=== PATIENT | male | born 1995 | race African-American/Black ===

== ENCOUNTER 2016-12-25 17:23 | Emergency (ER) | payer OTHER ==
[~2016-12-25] VITALS: Ht 188 cm; Wt 82.6 kg
[2016-12-25 17:50] VITALS: BP 120/78
[2016-12-25] MEDS ORDERED: NKM (17:54)
--- NOTE | 2016-12-25 18:14 | Emergency Room Report ---
History of Present Illness General Chief Complaint: Animal Bite Source: Patient Present Illness HPI The patient is a 21-year-old male presenting with dog bite to the left hand which occurred at work today. Pain is described as a 7/10 dull ache to the hand and does not radiate. The patient did initially notice blood which has stopped. The patient denies numbness or tingling of the hand. Patient denies prior injury of the hand.The patient states that the dog was up-to-date with immunizations. Patient last had a tetanus shot 2 years prior. The patient denies any other symptoms including nausea, vomiting, fever, chills Allergies: Coded Allergies: No Known Allergies (Unverified , 12/25/16) Patient History Past Medical History: see triage record Pertinent Family History: none Reviewed Nursing Documentation: PMH: Agreed, PSxH: Agreed Nursing Documentation-PMH Past Medical History: No Stated History Review of Systems All Other Systems: negative except mentioned in HPI Physical Exam Vital Signs Date Time Temp Pulse Resp B/P Pulse Ox O2 Delivery O2 Flow Rate FiO2 12/25/16 17:50 98.2 65 14 120/78 99 Room Air Sp02 EP Interpretation: reviewed, normal General Appearance: no apparent distress, alert, GCS 15, non-toxic Head: normocephalic, atraumatic Eyes: bilateral eye PERRL, bilateral eye normal inspection ENT: hearing grossly normal, normal pharynx, no angioedema, normal voice Musculoskeletal: back normal, gait/station normal, normal range of motion, tender - Tender over proximal hand. Distal to wrist Neurologic: alert, oriented x3, responsive, motor strength/tone normal, sensory intact, speech normal Psychiatric: judgement/insight normal, memory normal, mood/affect normal, no suicidal/homicidal ideation Reflexes: 3+ bicep (R), 3+ bicep (L), 3+ tricep (R), 3+ tricep (L), 3+ knee (R) , 3+ knee (L) Skin: normal color, no rash, warm/dry, well hydrated, laceration - two puncture wounds of the L hand palmar surface. No active bleeding. One < 1cm abrasion to mod dorsum of hand. Lymphatic: no adenopathy Medical Decision Making PA Attestation Dr. Carranza is my supervising physician. Patient management was discussed with my supervising physician Diagnostic Impression: Primary Impression: Dog bite ER Course The patient is a 21-year-old male presenting with dog bite to the left hand which occurred at work today. Ddx considered include but not limited to bite wound, tendon injury, laceration , contusion PE: vitals WNL. NAD two puncture wounds of the L hand palmar surface. No active bleeding. One < 1cm abrasion to mid dorsum of hand. Full active range of motion of the hand. Sensation intact to light touch.no edema The wounds were copiously irrigated with pressured normal saline with Betadine. Bacitracin is applied as well as sterile dressing. The patient will be discharged home with a prescription for Augmentin. ER precautions are given. Last Vital Signs Date Time Temp Pulse Resp B/P Pulse Ox O2 Delivery O2 Flow Rate FiO2 12/25/16 17:50 98.2 65 14 120/78 99 Room Air Status: improved Disposition: HOME, SELF-CARE Condition: Improved Scripts Amoxicillin/Potassium Clav 500-125 Tablet* (AUGMENTIN 500-125 TABLET*) 1 Each Tablet 1 TAB ORAL THREE TIMES A DAY, #15 TAB Prov: ALE KHAN P.Marina 12/25/16 Ibuprofen* (MOTRIN*) 600 Mg Tablet 600 MG ORAL Q8H Y for For Pain, #30 TAB 0 Refills Prov: ALE KHAN P.AMaggy 12/25/16 ALE KHAN Dec 25, 2016 18:14
[2016-12-25] MEDS ORDERED: AUGMENTIN 500-1 EACH ORAL (19:05)
[2016-12-25] MEDS ORDERED: IBUPROFEN600 MG ORAL (19:05)
[2016-12-25] MEDS ORDERED: Bacitracin Oint UD TOPIC ONE (19:15)
[2016-12-25 19:24] VITALS: BP 122/79
== END 2016-12-25 19:24 | disposition home or self-care (01) ==
LOC: EMR 18:05
DX: S61.432A Puncture wound without foreign body of left hand, initial encounter (principal); S60.512A Abrasion of left hand, initial encounter; W54.0XXA Bitten by dog, initial encounter; Y92.89 Other specified places as the place of occurrence of the external cause; Y99.0 Civilian activity done for income or pay
CPT/HCPCS: 99284